=== PATIENT | male | born 1995 | race Caucasian/White ===

== ENCOUNTER 2016-06-10 14:35 | Emergency (ER) | payer BC ==
[~2016-06-10] VITALS: Ht 172.7 cm; Wt 70.0 kg
[2016-06-10 14:50] VITALS: TEMP 36.7; Ht 172.7 cm; Wt 70.0 kg
--- NOTE | 2016-06-10 17:00 | DIAGNOSTIC IMAGING REPORT ---
ULTRASOUND TESTES AND SCROTUM CLINICAL HISTORY: Right testicular pain. COMPARISON STUDY: No priors. TECHNIQUE: Real-time, grayscale, and color Doppler sonography of the testes and scrotum is performed. Images are reviewed in the transverse and longitudinal planes. FINDINGS: The testes are normal in size and homogeneous in echotexture. The right testis measures 4.1 x 2.2 x 2.6 cm and the left testis measures 4.5 x 2.6 x 2.7 cm. No intratesticular mass is seen. Testicular blood flow is normal and symmetric. Normal Doppler waveforms are identified in both testes. The epididymal heads are normal in appearance. The right epididymal head measures 0.9 cm in length and the left epididymal head measures 1.0 cm in length. No varicocele or hydrocele is seen. IMPRESSION: Unremarkable sonographic assessment of the testes and scrotum. Electronically signed by: Juan Ramos M.D. 06/10/2016 4:58 PM Dictated Date/Time: 06/10/2016 4:53 PM
[2016-06-10 17:14] VITALS: BP 128/74; PULSE 83; O2SAT 98
--- NOTE | 2016-06-10 17:22 | EMERGENCY ROOM VISIT NOTE ---
History First contact with patient: 15:03 Chief Complaint: TESTICULAR PAIN Stated Complaint: TESTICULAR PAIN, NAUSEA, LIGHTHEADED Nursing Triage Summary: Dull right testicular pain for 1 week today more sharp pain. Patient states right testicle slightly more swollen than left. Today also with nausea from the pain . History of Present Illness The patient is a 21 year old male who presents to the Emergency Room with complaints of intermittent right testicular pain for the past week. The patient reports that the pain has been mostly dull discomfort, but has been more sharp over the past few days. The patient is also having slight nausea with the pain. He denies any recent injury to the testicle. The patient is sexually active, and a monogamous relationship, and with condom use. The patient denies any blood in his urine, or urethral drainage. He has noticed slight swelling of the right testicle. He denies any significant pain radiating into the pelvis or rectum. He currently denies any pain. Review of Systems 10 system review was performed and was negative except for pertinent positives and negatives as indicated in history of present illness Past Medical/Surgical History Medical Problems: (1) Kidney stones Surgical Problems: (1) No history of previous surgery Family History FH: hypertension FH: kidney disease Social History Smoking Status: Never Smoker Alcohol Use: occasionally Marital Status: single Occupation Status: [employer] student Current/Historical Medications No Active Prescriptions or Reported Meds Allergies Coded Allergies: No Known Allergies (Unverified , 06/10/16) Physical Exam Vital Signs Date Time Temp Pulse Resp B/P Pulse Ox O2 Delivery O2 Flow Rate FiO2 06/10/16 17:14 83 17 128/74 98 Room Air 06/10/16 14:50 36.7 71 16 135/81 99 Room Air Physical Exam CONSTITUTIONAL: Healthy and well nourished. Alert and oriented X 3 with positive affect. Patient does not appear in any acute distress. HEENT: Normocephalic, atraumatic. Pupils equal, round and reactive. NECK: Full active range of motion without discomfort. GASTROINTESTINAL: Bowel sounds present in all quadrants. Soft and nontender to palpation. Negative McBurney's point tenderness. Negative CVA tenderness. MUSCULOSKELETAL: Full range of motion of all joints without discomfort. No discomfort with range of motion of the right hip. INTEGUMENTARY: No rash or other significant dermatologic conditions noted. HEMATOLOGIC: No ecchymosis or petechiae. NEUROLOGIC: No focal neurologic deficits noted. Medical Decision & Procedures ER Provider Diagnostic Interpretation: Testicular ultrasound shows no acute findings. Radiologist report is as follows : ULTRASOUND TESTES AND SCROTUM CLINICAL HISTORY: Right testicular pain. COMPARISON STUDY: No priors. TECHNIQUE: Real-time, grayscale, and color Doppler sonography of the testes and scrotum is performed. Images are reviewed in the transverse and longitudinal planes. FINDINGS: The testes are normal in size and homogeneous in echotexture. The right testis measures 4.1 x 2.2 x 2.6 cm and the left testis measures 4.5 x 2.6 x 2.7 cm. No intratesticular mass is seen. Testicular blood flow is normal and symmetric. Normal Doppler waveforms are identified in both testes. The epididymal heads are normal in appearance. The right epididymal head measures 0.9 cm in length and the left epididymal head measures 1.0 cm in length. No varicocele or hydrocele is seen. IMPRESSION: Unremarkable sonographic assessment of the testes and scrotum. Laboratory Results Urine dip does not show any evidence for hematuria or signs of infection. ED Course Patient history and physical exam were performed. Nurse's notes were reviewed. Vital signs were reviewed and were normal. The patient denied any significant pain on exam. Urine dip was normal. Testicular ultrasound was normal. The patient was encouraged to intermittently apply ice and wear an athletic support for relief. The patient was encouraged to alternate ibuprofen and Tylenol as needed for additional pain relief. He was provided contact information for urology (Dr. Bucio) should his symptoms persist. The patient was happy with plan of care, voiced understanding of all discharge instructions , and denied any pain at the time of discharge. Medical Decision Ultrasound today does not show any evidence for torsion, epididymitis, bleed or other acute findings. Urinalysis shows no hematuria, therefore I do not suspect ureteral calculus. His abdominal exam is also benign, therefore I do not suspect appendicitis, diverticulitis, obstruction or peritonitis. Impression Primary Impression: Right testicular pain Departure Information Prescriptions No Active Prescriptions or Reported Meds Referrals No Doctor, Assigned (PCP) Patient Instructions My [facility]
== END 2016-06-10 17:46 | disposition home or self-care (01) ==
LOC: C.EDB 14:38 → C.EDD 17:46
DX: N50.811 Right testicular pain (principal); Z87.442 Personal history of urinary calculi; Z82.49 Family history of ischemic heart disease and other diseases of the circulatory system

== ENCOUNTER 2017-01-29 01:45 | Emergency (ER) | payer BC ==
[~2017-01-29] VITALS: Ht 175.3 cm; Wt 68.5 kg
[2017-01-29 01:49] VITALS: TEMP 36.3; Ht 175.3 cm; Wt 68.5 kg
[2017-01-29] MEDS ORDERED: SODIUM CHLORIDE 0.9% 1000ML 1,000 ML IV ONE (02:15)
[2017-01-29] MEDS ORDERED: DOCU100C PO (02:20)
[2017-01-29 02:33] LABS: HEMATOCRIT 44.1 % (42-52); MEAN CELL VOLUME 85.1 fL (80-100); MEAN CORPUSCULAR HEMOGLOBIN 29.9 pg (25-34); MEAN CORPUSCULAR HGB CONC 35.1 g/dl (32-36); MEAN PLATELET VOLUME 12.4 fL (7.4-10.4); PLATELET COUNT 233 K/uL (130-400); RED BLOOD COUNT 5.18 M/uL (4.7-6.1); WHITE BLOOD COUNT 7.47 K/uL (4.8-10.8)
[2017-01-29 02:40] LABS: URINE APPEARANCE CLEAR (CLEAR); URINE BILIRUBIN NEG (NEG); URINE COLOR YELLOW; URINE NITRITE NEG (NEG); URINE SPECIFIC GRAVITY 1.014 (1.000-1.030); UROBILINOGEN NEG (NEG); ZZUR CULT IF INDIC CLEAN CATCH NO
[2017-01-29 02:45] LABS: MANUAL MICROSCOPIC REQUIRED? NO; REVIEW REQ? NO
[2017-01-29 02:57] LABS: BUN/CREATININE RATIO 17.6 (10-20); CALCIUM 8.9 mg/dl (8.5-10.1); MAGNESIUM 2.3 mg/dl (1.8-2.4); POTASSIUM 3.4 mmol/L (3.5-5.1)
[2017-01-29 03:05] LABS: ALB/GLOB RATIO 1.2 (0.9-2); CKMB/CK RATIO 0.8 (0-3.0); THYROID STIMULATING HORMONE 2.86 uIu/ml (0.300-4.500)
[2017-01-29 03:07] LABS: BENZODIAZEPINE, URINE NEG (NEG); COCAINE,URINE NEG (NEG); PHENCYCLIDINE, URINE NEG (NEG)
[2017-01-29 03:12] LABS: BASO % 0.4 %; BASO ABS # 0.03 K/uL (0-0.2); COMPLETE YES; EOS % 1.2 %; IG% 0.1 %; LYMPH % 50.3 %; LYMPH ABS # 3.76 K/uL (1.2-3.4)
[2017-01-29] MEDS ORDERED: ACETAMINOPHEN 500 MG TAB PO STA (03:15)
[2017-01-29 03:30] LABS: LYME DISEASE AB IGG NEG (NEG); LYME DISEASE AB IGM NEG (NEG)
[2017-01-29 04:28] VITALS: BP 115/76; PULSE 79; O2SAT 97
--- NOTE | 2017-01-29 07:37 | DIAGNOSTIC IMAGING REPORT ---
CHEST ONE VIEW PORTABLE CLINICAL HISTORY: 21 years-old Male presenting with Vague illness, full body muscle spasms, rigidity in the neck. TECHNIQUE: Portable upright AP view of the chest was obtained. COMPARISON: None. FINDINGS: Cardiomediastinal silhouette normal. Lungs and pleural spaces clear. Osseous structures normal. Upper abdomen normal. IMPRESSION: 1. No acute cardiopulmonary disease. Electronically signed by: Eulalio Cooley M.D. 01/29/2017 7:35 AM Dictated Date/Time: 01/29/2017 7:35 AM
--- NOTE | 2017-01-30 02:17 | EMERGENCY ROOM VISIT NOTE ---
History First contact with patient: 01:54 Chief Complaint: OTHER COMPLAINT Stated Complaint: FULL BODY MUSCLE SPASMS,RIGIDITY IN NECK History of Present Illness The patient is a 21 year old male who presents to the Emergency Room with complaints of muscle spasms in his bilateral legs and abdomen after smoking marijuana tonight. The patient states that he has had similar symptoms like this in the past and is evidently following with neurology in about 2 weeks. The patient has not had fever or chills. No nausea or vomiting. He does not report recent URI symptoms, paresthesias, or other symptoms out of the ordinary. He considers himself usually healthy and is not abusing other drugs or alcohol. He denies stimulant or supplement use. The patient states that his symptoms lasted for about 30 minutes before improving. He rates his current discomfort a 5/10. He is not taking anything [id number] for his discomfort. Review of Systems More than 10 systems were reviewed and otherwise negative with the exception of history of present illness. Past Medical/Surgical History Medical Problems: (1) Kidney stones Surgical Problems: (1) No history of previous surgery Family History FH: hypertension FH: kidney disease Social History Smoking Status: Never Smoker Alcohol Use: occasionally Marital Status: single Occupation Status: [email or web address] student Current/Historical Medications Scheduled Docusate Sodium (Stool Softener), 100 MG PO DAILY Physical Exam Vital Signs Date Time Temp Pulse Resp B/P (MAP) Pulse Ox O2 Delivery O2 Flow Rate FiO2 01/29/17 04:28 79 18 115/76 97 01/29/17 03:25 79 18 137/75 99 Room Air 01/29/17 02:35 77 01/29/17 01:49 36.3 99 18 146/87 98 Room Air Physical Exam VITALS: Vitals are noted on the nurse's note and reviewed by myself. Vital signs stable. GENERAL: Well-developed, well-nourished, white male, who is in no acute distress and resting comfortably. Patient is cooperative with the examination. HEAD: Normocephalic atraumatic. EARS: External ear normal. External auditory canals clear, tympanic membranes pearly sorensen without erythema or effusion bilaterally. EYES: Pupils equal round and reactive to light and accommodation. Conjunctivae without injection, sclerae without icterus. Extraocular movements intact. NOSE: Patent, turbinates without inflammation or discharge. MOUTH: Mucous membranes moist. Tonsils are not enlarged. Pharynx without erythema, blood, or exudate. Uvula midline. Airway patent. NECK: Supple without nuchal rigidity. No lymphadenopathy. No thyromegaly. Cervical spine is nontender. HEART: Regular rate and rhythm without murmurs gallops or rubs. LUNGS: Clear to auscultation bilaterally without wheezes, rales or rhonchi. No retractions or accessory muscle use. ABDOMEN: Positive normal bowel sounds x 4. Soft, nontender, without masses or organomegaly. No guarding or rebound tenderness. MUSCULOSKELETAL: No muscle atrophy, erythema, or edema noted. Full range of motion without joint tenderness in all extremities. No tenderness to palpation. Normal gait. Strength 5/5 throughout. NEURO: Patient was alert and oriented to person place and time. CN II through XII grossly intact. Deep tendon reflexes 2+ throughout. No focal neurological deficits SKIN: The skin was without rashes, erythema, edema, or bruising. Capillary reflex less than 2 seconds. Medical Decision & Procedures ER Provider Diagnostic Interpretation: CHEST ONE VIEW PORTABLE CLINICAL HISTORY: 21 years-old Male presenting with Vague illness, full body muscle spasms, rigidity in the neck. TECHNIQUE: Portable upright AP view of the chest was obtained. COMPARISON: None. FINDINGS: Cardiomediastinal silhouette normal. Lungs and pleural spaces clear. Osseous structures normal. Upper abdomen normal. IMPRESSION: 1. No acute cardiopulmonary disease Laboratory Results 01/29/17 02:15 Red Blood Count 5.18, Mean Corpuscular Volume 85.1, Mean Corpuscular Hemoglobin 29.9, Mean Corpuscular Hemoglobin Concent 35.1, Mean Platelet Volume 12.4, Neutrophils (%) (Auto) 42.0, Lymphocytes (%) (Auto) 50.3, Monocytes (%) (Auto) 6.0, Eosinophils (%) (Auto) 1.2, Basophils (%) (Auto) 0.4, Neutrophils # (Auto) 3.13, Lymphocytes # (Auto) 3.76, Monocytes # (Auto) 0.45, Eosinophils # (Auto) 0.09, Basophils # (Auto) 0.03 01/29/17 02:15 Test 01/29/17 02:15 01/29/17 02:23 01/29/17 02:24 White Blood Count 7.47 K/uL (4.8-10.8) Red Blood Count 5.18 M/uL (4.7-6.1) Hemoglobin 15.5 g/dL (14.0-18.0) Hematocrit 44.1 % (42-52) Mean Corpuscular Volume 85.1 fL (80-100) Mean Corpuscular Hemoglobin 29.9 pg (25-34) Mean Corpuscular Hemoglobin Concent 35.1 g/dl (32-36) Platelet Count 233 K/uL (130-400) Mean Platelet Volume 12.4 fL (7.4-10.4) Neutrophils (%) (Auto) 42.0 % Lymphocytes (%) (Auto) 50.3 % Monocytes (%) (Auto) 6.0 % Eosinophils (%) (Auto) 1.2 % Basophils (%) (Auto) 0.4 % Neutrophils # (Auto) 3.13 K/uL (1.4-6.5) Lymphocytes # (Auto) 3.76 K/uL (1.2-3.4) Monocytes # (Auto) 0.45 K/uL (0.11-0.59) Eosinophils # (Auto) 0.09 K/uL (0-0.5) Basophils # (Auto) 0.03 K/uL (0-0.2) RDW Standard Deviation 39.1 fL (36.4-46.3) RDW Coefficient of Variation 12.7 % (11.5-14.5) Immature Granulocyte % (Auto) 0.1 % Immature Granulocyte # (Auto) 0.01 K/uL (0.00-0.02) Red Blood Cell Morphology Unremarkable Anion Gap 9.0 mmol/L (3-11) Est Creatinine Clear Calc Drug Dose 113.2 ml/min Estimated GFR () 124.1 Estimated GFR (Non- 107.1 BUN/Creatinine Ratio 17.6 (10-20) Calcium Level 8.9 mg/dl (8.5-10.1) Magnesium Level 2.3 mg/dl (1.8-2.4) Total Bilirubin 0.4 mg/dl (0.2-1) Aspartate Amino Transf (AST/SGOT) 20 U/L (15-37) Alanine Aminotransferase (ALT/SGPT) 22 U/L (12-78) Alkaline Phosphatase 81 U/L (45-117) Total Creatine Kinase 130 U/L (39-308) Creatine Kinase MB 1.1 ng/ml (0.5-3.6) Creatine Kinase MB Ratio 0.8 (0-3.0) Total Protein 7.4 gm/dl (6.4-8.2) Albumin 4.0 gm/dl (3.4-5.0) Globulin 3.4 gm/dl (2.5-4.0) Albumin/Globulin Ratio 1.2 (0.9-2) Thyroid Stimulating Hormone (TSH) 2.860 uIu/ml (0.300-4.500) Free Thyroxine 1.05 ng/dl (0.80-1.60) Lyme Disease IgG Antibody NEG (NEG) Lyme Disease IgM Antibody NEG (NEG) Urine Color YELLOW Urine Appearance CLEAR (CLEAR) Urine pH 6.0 (4.5-7.5) Urine Specific Lawrence 1.014 (1.000-1.030) Urine Protein NEG (NEG) Urine Glucose (UA) NEG (NEG) Urine Ketones NEG (NEG) Urine Occult Blood NEG (NEG) Urine Nitrite NEG (NEG) Urine Bilirubin NEG (NEG) Urine Urobilinogen NEG (NEG) Urine Leukocyte Esterase NEG (NEG) Urine Opiates Screen NEG (NEG) Urine Methadone, Qualitative NEG (NEG) Urine Barbiturates NEG (NEG) Urine Phencyclidine (PCP) Level NEG (NEG) Ur Amphetamine/Methamphetamine NEG (NEG) MDMA (Ecstasy) Screen NEG (NEG) Urine Benzodiazepines Screen NEG (NEG) Urine Cocaine Metabolite NEG (NEG) Urine Marijuana (THC) POS (NEG) Bedside Troponin I < 0.030 ng/ml (0-0.045) Medications Administered Medications (Trade) Dose Ordered Sig/Althea Route Start Time Stop Time Status Last Admin Dose Admin Sodium Chloride 1,000 ml @ 999 mls/hr Q1H1M ONCE IV 01/29/17 02:15 01/29/17 03:15 DC 01/29/17 02:22 999 MLS/HR Acetaminophen (Tylenol Tab) 1,000 mg NOW STAT PO 01/29/17 03:15 01/29/17 03:16 DC 01/29/17 03:21 1,000 MG ED Course Physical exam and history were performed. Nursing notes, EMR, and Medication List were personally reviewed. Patient appears to have vague symptoms of muscle spasm after smoking marijuana this evening. On examination the patient appears well. Neurologically he is intact and does not have evidence of ongoing spasm or neurologic deficit on examination. He has evidently had symptoms like this in the past and is to follow with neurology. I did elect to establish IV access and draw labs. The patient was hydrated with normal saline and chest x-ray was performed. The patient is as above and was reviewed. He does not have significantly elevated white blood cell count or gross anemia, bandemia, or significant electrolyte imbalance. TSH is with euthyroid state. T4 is within normal limits. Lyme is negative. Troponin 1 is also negative. Chest x-ray does not show acute findings. Urine was without evidence of infection, but was positive for marijuana. Otherwise drug of abuse screen was negative. The patient remained in stable condition for several hours here in the department. He did not have any recurrence of his symptoms. Clinically the patient appears well for discharge home, and he is to keep his upcoming up with neurology. I had a nickie conversation with patient about discontinuing marijuana use, as I suspect this is triggering many of his symptoms, and at a minimum is clouding his true diagnosis. The patient was certainly invited back to the emergency department with any new, worsening, or concerning symptoms. He voiced understanding and rated his discomfort a 0/10 at the time of departure. The chart was completed utilizing [employer] Speech Voice Recognition Software. Grammatical errors, random word insertions, pronoun errors, and incomplete sentences are an occasional consequence of this system due to software limitations, ambient noise, and hardware issues. Any formal questions or concerns about the content, text, or information contained within the body of this dictation should be directly addressed to the provider for clarification. . Medical Decision Differential diagnosis: Etiologies such as metabolic, infection, hypo/hyperglycemia, electrolyte abnormalities, cardiac sources, intracerebral event, toxicologic, neurologic, as well as others were entertained. Impression Primary Impression: Muscle spasm Additional Impression: Marijuana use Departure Information Dispostion Home / Self-Care Condition GOOD Forms HOME CARE DOCUMENTATION FORM, IMPORTANT VISIT INFORMATION Patient Instructions My [facility] Additional Instructions You were seen and evaluated today on an emergency basis only. This is not a substitute for, or an effort to provide, complete comprehensive medical care. It is not possible to recognize and treat all injuries or illnesses in a single emergency department visit. For this reason it is recommended that you followup with your primary care physician and neurologist for ongoing care and evaluation. Drink plenty of fluids and remain well hydrated. You are welcome to return to the emergency department anytime with new, worsening, or concerning symptoms. Problem Qualifiers
== END 2017-01-29 04:28 | disposition home or self-care (01) ==
LOC: C.EDB 01:46
DX: M62.838 Other muscle spasm (principal); F12.90 Cannabis use, unspecified, uncomplicated; Z82.49 Family history of ischemic heart disease and other diseases of the circulatory system

== ENCOUNTER → 2017-02-24 | Outpatient (CLI) | payer BC ==
[~2017-02-24] MED LIST: DOCU100C PO; GADAVIST IV PRN
--- NOTE | 2017-02-24 10:24 | DIAGNOSTIC IMAGING REPORT ---
Brain MRI WITH AND WITHOUT CONTRAST HISTORY: R20.2 Paresthesias H53.8 Blurry vision R42 Vertigo R20.9 Disturbance TECHNIQUE: Multiplanar multisequence MRI of the brain was performed both before and after the intravenous administration of contrast. COMPARISON STUDY: None. FINDINGS: There are no areas of restricted diffusion to suggest acute infarction. The midline structures are intact. The paranasal sinuses are clear. The mastoid air cells are clear. The ventricles and sulci are within normal limits for age. There is no mass, hematoma, midline shift. The major vascular flow-voids at the skull base are well maintained. Postcontrast sequences show no areas of abnormal enhancement. IMPRESSION: Normal brain MRI. Electronically signed by: Reji Ramos M.D. 02/24/2017 10:23 AM Dictated Date/Time: 02/24/2017 10:17 AM
== END | disposition home or self-care (01) ==
LOC: C.MRI 08:35
PROVIDERS: ATTEND Physician Assistant
DX: H53.8 Other visual disturbances (principal); R42 Dizziness and giddiness; R20.2 Paresthesia of skin

== ENCOUNTER → 2017-03-30 | Outpatient (CLI) | payer BC ==
[~2017-03-30] MED LIST changes: -GADAVIST IV PRN
--- NOTE | 2017-03-30 10:13 | DIAGNOSTIC IMAGING REPORT ---
MRI OF THE LUMBAR SPINE WITHOUT IV CONTRAST CLINICAL HISTORY: Lumbosacral radiculopathy. Leg pain and numbness, left greater than right. COMPARISON STUDY: No priors. TECHNIQUE: MRI of the lumbar spine is performed utilizing various T1 and T2-weighted sequences in the axial and sagittal planes. IV contrast was not administered for this examination. FINDINGS: Lumbar spine: Vertebral body height and alignment are maintained throughout the lumbar spine. Normal marrow signal intensity is preserved throughout the visualized bony structures. The transverse and spinous processes appear intact. There is no evidence of spondylolysis. Intervertebral discs: Normal in height and signal intensity. Spinal cord: The visualized spinal cord is normal in morphology and signal intensity. The conus medullaris terminates at the T12-L1 interspace. The nerve roots of the cauda equina are normal in morphology. L1-L2: Unremarkable. L2-L3: There is a tiny posterior disc bulge with annular fissure. The central canal and neural foramina are patent. L3-L4: There is a tiny disc bulge with annular fissure. The central canal and neural foramina are widely patent. L4-L5: Unremarkable. L5-S1: Unremarkable. Sacrum: The visualized sacrum is normal in morphology and signal intensity. Soft tissues: The paraspinal soft tissues are within normal limits. The partially imaged retroperitoneal structures are grossly unremarkable but incompletely evaluated. IMPRESSION: 1. There is no disc herniation, central canal stenosis, or neural foraminal stenosis seen throughout the lumbar spine. 2. No destructive bony process is seen. 3. Minimal degenerative disc disease as above. Dictated: 03/30/2017 9:08 AM Transcribed: 03/30/2017 10:13 AM Le Electronically signed by: Juan Ramos M.D. 03/30/2017 11:28 AM Dictated Date/Time: 03/30/2017 9:08 AM
== END | disposition home or self-care (01) ==
LOC: C.MRIBC 08:14
PROVIDERS: ATTEND Physician Assistant
DX: M54.17 Radiculopathy, lumbosacral region (principal)